=== PATIENT | female | born 1945 | race Caucasian/White ===

== ENCOUNTER → 2017-07-24 | Outpatient (CLI) | payer OTHER | END | disposition home or self-care (01) | LOC: LAB 15:00 → LAB SHORT 15:00 | PROVIDERS: Family Medicine | DX: Z12.4 Encounter for screening for malignant neoplasm of cervix (principal) | CPT/HCPCS: G0145 ==

== ENCOUNTER → 2018-11-06 | Outpatient (CLI) | payer OTHER ==
[~2018-11-06] MED LIST: CETI5 PO; TAMO10 PO
[2018-11-08 15:07] LABS: HPV 16 Negative (Negative); HPV 18 Negative (Negative); HPV OTHER HR TYPES Negative (Negative)
== END | disposition home or self-care (01) ==
LOC: LAB SHORT 19:42 → LAB 19:42
PROVIDERS: Family Medicine
DX: Z12.4 Encounter for screening for malignant neoplasm of cervix (principal)
CPT/HCPCS: 87624; G0145

== ENCOUNTER → 2020-01-06 | Outpatient (CLI) | payer OTHER | END | disposition home or self-care (01) | LOC: LAB SHORT 19:23 → LAB 19:23 | PROVIDERS: Family Medicine | DX: Z12.4 Encounter for screening for malignant neoplasm of cervix (principal) | CPT/HCPCS: G0145 ==

== ENCOUNTER → 2021-02-17 | Outpatient (CLI) | payer OTHER | END | disposition home or self-care (01) | LOC: LAB SHORT 19:16 | PROVIDERS: Family Medicine | DX: Z12.4 Encounter for screening for malignant neoplasm of cervix (principal) | CPT/HCPCS: G0145 ==

== ENCOUNTER 2022-02-16 06:46 | Day surgery (SDC) | payer OTHER ==
[~2022-02-16] VITALS: Ht 170.2 cm; Wt 86.0 kg
[2022-02-16] MEDS ORDERED: GABA300 PO (07:18)
[2022-02-16] MEDS ORDERED: ASPI325 PO (07:19)
== END 2022-02-16 08:30 | disposition home or self-care (01) ==
LOC: ORSCSDS 06:46
PROVIDERS: Ophthalmology
PROC: 08DJ3ZZ Extraction of Right Lens, Percutaneous Approach (ICD-10-PCS; principal; 2022-02-16 08:00)
DX: H25.11 Age-related nuclear cataract, right eye (principal); I10 Essential (primary) hypertension; Z79.82 Long term (current) use of aspirin; Z79.899 Other long term (current) drug therapy
CPT/HCPCS: 82947; J2001; J2250; J3010; J3301; J7040; V2632

== ENCOUNTER 2022-02-23 06:49 | Day surgery (SDC) | payer OTHER ==
[~2022-02-23] VITALS: Ht 170.2 cm; Wt 85.0 kg
[~2022-02-23 06:49] MED LIST changes: +ASPI325 PO; +GABA300 PO
--- NOTE | 2022-02-23 07:18 | NUR ---
02/23/22 0718 RADHIKA JEFFERSON IN AT 0710 TOSHA IN AT 0712
== END 2022-02-23 08:45 | disposition home or self-care (01) ==
LOC: ORSCSDS 06:49
PROVIDERS: Ophthalmology
PROC: 08RK3JZ Replacement of Left Lens with Synthetic Substitute, Percutaneous Approach (ICD-10-PCS; principal; 2022-02-23 08:00)
DX: H25.12 Age-related nuclear cataract, left eye (principal); I10 Essential (primary) hypertension; Z79.899 Other long term (current) drug therapy; Z79.82 Long term (current) use of aspirin
CPT/HCPCS: J2001; J2250; J3010; J3301; V2632

== ENCOUNTER → 2022-08-30 | Outpatient (CLI) | payer OTHER ==
[~2022-08-30] MED LIST changes: +ASCO500 PO; +B-COMPLEX WITH1 EAC2 PO; +Selenomax200 MCG PO; +VITAMIN D
[2022-09-03 15:07] LABS: CHLAMYDIA TRACHOMATIS, NAA Negative (Negative); HPV 16 Negative (Negative); HPV 18 Negative (Negative); HPV OTHER HR TYPES Negative (Negative)
== END | disposition home or self-care (01) ==
LOC: LAB 14:40 → LAB SHORT 14:40
PROVIDERS: Family Medicine
DX: Z12.4 Encounter for screening for malignant neoplasm of cervix (principal)
CPT/HCPCS: 87491; 87591; 87624; G0145

== ENCOUNTER 2024-11-16 02:27 | Emergency (ER) | payer OTHER ==
[~2024-11-16] VITALS: Ht 170.2 cm; Wt 86.3 kg
[2024-11-16 04:00] VITALS: BP 160/88
== END 2024-11-16 04:00 | disposition home or self-care (01) ==
LOC: ER 02:27
DX: I83.892 Varicose veins of left lower extremity with other complications (principal); Z88.5 Allergy status to narcotic agent; Z79.2 Long term (current) use of antibiotics
CPT/HCPCS: 99283